=== PATIENT | male | born 1945 | race Caucasian/White ===

== ENCOUNTER 2018-02-15 14:31 | Inpatient (IN) ==
[2018-02-15] MEDS ORDERED: IPRATROPIUM/ALBUTEROL 3 ML AMPUL.NEB NEB ONE ×2 (14:36→20:44)
[2018-02-15] MEDS ORDERED: methylPREDNISolone SOD SUCC 125 MG/2 ML VIAL IV ONE (14:37)
[2018-02-15] MEDS ORDERED: AZITHROMYCIN 500 MG in DEXTROSE 5% IN WATER 250 ML IV ONE ×2 (14:37→16:58)
[2018-02-15] MEDS ORDERED: 0.9 % SODIUM CHLORIDE 1,000 ML IV ONE (14:55)
--- NOTE | 2018-02-15 15:16 | XRay Report ---
HISTORY: Shortness of breath with cough FINDINGS: There are prominent increased interstitial lung markings throughout both lungs with the greatest opacification located medially in the right lung base. There is no lobar consolidation, mass or pleural effusion. The heart size is normal. The luis a and mediastinum appear normal. There are clips at the left apex. Comparison with the prior exam from 05/31/17 shows interstitial lung disease is much more apparent today. IMPRESSION: Widespread interstitial lung disease which could be due to infection or noninfectious inflammatory process. If this does not respond to conservative therapy, high resolution chest CT would be recommended for further workup. Interpreted and Authenticated by: Jose M Carreno 02/15/18
[2018-02-15 15:32] LABS: Mean Cell Volume 89.7 fL (80.0-100.0); Mean Corpuscular HGB Conc 33.3 g/dL (31.0-36.0); Mean Corpuscular Hemoglobin 29.9 pg (26.0-34.0); Platelet Count 332 K/mcL (140-440); RBC 5.09 M/mcL (4.50-5.90); Red Cell Distribution Width 12.4 % (11.5-14.5)
[2018-02-15 15:48] LABS: ALT/SGPT 38 U/l (0-40); Albumin 3.7 gm/dL (3.2-5.2); Albumin/Globulin Ratio 0.9 (1.0-2.3); Alkaline Phosphatase 93 U/L (39-117); Blood Urea Nitrogen 12 mg/dl (8-23)
--- NOTE | 2018-02-15 16:18 | Emergency Department Note ---
SOB HPI - General Chief Complaint: Shortness of Breath/Dyspnea Stated Complaint: short of breath, cough Time Seen by Provider: 02/15/18 14:34 Source: patient, family Mode of arrival: wheelchair Limitations: no limitations - History of Present Illness 72-year-old male presents with shortness of breath, onset about 3 weeks ago but progressively gotten worse of the last couple of weeks and especially the last few days. Has known COPD. Uses inhalers at home. Is not getting any relief. Does have chest tightness. Shortness of breath is exacerbated by exertion. Significant other is with him. She states he has had a cough that is productive for the last couple of weeks. Started out with greenish sputum and is now whitish kaur. States he is getting worse, not better. Intermittent fever and chills the last week. No nausea, vomiting, or diarrhea. No ear pain or sore throat. Patient is normally on 1 L nasal cannula at home of oxygen. When he arrives today his sats are in the 70s on room air in triage. Associated symptoms: Reports: chest pain, pain with inspiration, fever, cough, wheezing, sputum production, orthopnea. Denies: lower extremity pain, nausea/ vomiting, syncope, abdominal pain, rash Treatment prior to arrival: oxygen (Patient on 1 L of oxygen nasal cannula at home normally), bronchodilator - Related Data Home Medications Medication Instructions Recorded Confirmed HYDROcodone/APAP 5/325MG [[place] 1 - 2 tab PO Q4HP PRN 11/14/15 02/15/18 5-325Mg] Roflumilast [Daliresp] 500 mcg PO DAILY 11/14/15 02/15/18 Sertraline HCl [Zoloft] 100 mg PO DAILY 11/14/15 02/15/18 formoterol fumarate 20 mcg/2 mL 2 ml INHALATION BID ml 08/05/16 02/15/18 solution for nebulization tiotropium bromide 18 mcg capsule 1 cap INHALATION QDAY 08/05/16 11/25/17 with inhalation device budesonide 0.5 mg/2 mL suspension 0.5 mg INHALATION BID ml 08/13/16 02/15/18 for nebulization Allergies Allergy/AdvReac Type Severity Reaction Status Date / Time Penicillins [PENICILLINS] AdvReac Severe CRAZY Verified 02/15/18 14:35 Review of Systems All systems ED: reviewed and negative except as stated. Past Medical History - Past Medical History [facility] Narrative: Medical History (Last Reviewed 11/25/17 @ 13:45 by Trevor Akins MD) PVD (peripheral vascular disease) (Chronic) Squamous cell carcinoma (Chronic) RLS (restless legs syndrome) (Chronic) Eczema (Chronic) Erectile dysfunction (Chronic) Depression (Chronic) Anxiety (Chronic) Carpal tunnel syndrome (Chronic) COPD (chronic obstructive pulmonary disease) (Chronic) Community acquired pneumonia (Chronic) Acute exacerbation of chronic obstructive airways disease (Chronic) Past Surgical History (Last Reviewed 11/25/17 @ 13:45 by Trevor Akins MD) History of neck surgery (Chronic) History of shoulder surgery (Chronic) Status post wrist surgery (Chronic) Medical history: Reports: arthritis, COPD, glaucoma Surgical history ED: Reports: cataract, orthopedic, other (Rib resection, 3 times cervical spine fusion) - Social History smoking status: Former smoker Alcohol use: Reports: None Drug use: Reports: none Physical Exam Limitations: no limitations General appearance: alert, other (sob, speaking 1-2 words at a time with labored breathing, moderate distress on arrival) Head: atraumatic, normocephalic, normal inspection Eye: Present: normal appearance. Absent: conjunctival injection ENT: normal exam, normal oropharynx, mucous membranes moist, TM's normal bilaterally, normal external ear exam Neck: Present: normal inspection, trachea midline. Absent: tenderness, lymphadenopathy Chest: Present: normal inspection, symmetric chest wall rise Respiratory: Present: respiratory distress (moderate on arrival), rales/ crackles (t/o), wheezes (t/o), accessory muscle use Cardiovascular: Present: regular rate, normal heart sounds Extremities: Present: normal inspection, normal capillary refill. Absent: pedal edema Neurological: Present: alert, oriented X3 Psychiatric: Present: normal affect, normal mood Skin: Present: warm, dry, intact, normal color Course Course Narrative: @ [address] did speak with Dr[address] Caicedo, hospitalist who agrees to accept the patient. He would like us to start pt on Zosyn and Levaquin. Vital Signs Temperature 99.4 F H 02/15/18 14:32 Pulse Rate 104 H 02/15/18 14:32 Respiratory Rate 30 H 02/15/18 14:32 Pulse Oximetry (%) 96 02/15/18 14:32 Temperature 99.4 F H 02/15/18 14:32 Pulse Rate 89 02/15/18 17:32 Respiratory Rate 22 02/15/18 17:32 Blood Pressure 131/64 02/15/18 17:32 Pulse Oximetry (%) 95 02/15/18 17:32 Shortness of Breath/Dyspnea - Lab Data Lab results reviewed: Yes I reviewed the patient's lab results. Result diagrams: 02/15/18 14:36 02/15/18 14:36 Lab Results 02/15/18 02/15/18 02/15/18 Range/Units 14:35 14:36 14:36 WBC 15.7 H (4.5-11.0) K/mcL RBC 5.09 (4.50-5.90) M/mcL Hgb 15.2 (13.5-16.5) g/dL Hct 45.6 (41.0-55.0) % MCV 89.7 (80.0-100.0) fL MCH 29.9 (26.0-34.0) pg MCHC 33.3 (31.0-36.0) g/dL RDW 12.4 (11.5-14.5) % Plt Count 332 (140-440) K/mcL MPV 7.6 (7.4-10.4) fL Total Counted 100 Seg Neutrophils % 76 (38-78) % Band Neutrophils % 7 (0-10) % Lymphocytes % 8 L (15-49) % Monocytes % (Manual) 9 (1-12) % Platelet Estimate Normal (NORMAL) RBC Morphology Normal (NORMAL) VBG Lactic Acid (0.5-2.0) mmol/L Sodium 141 (133-145) mmol/L Potassium 3.8 (3.3-5.1) mmol/L Chloride 97 (96-108) mmol/L Carbon Dioxide 33 H (22-30) mmol/L Anion Gap 11.0 (8-16) BUN 12 (8-23) mg/dl Creatinine 0.7 (0.7-1.2) mg/dl GFR Calculation 93 Glucose 128 H (70-105) mg/dL Calcium 9.4 (8.6-10.4) mg/dl Total Bilirubin 0.4 (0.0-1.0) mg/dL AST 24 (0-37) U/l ALT 38 (0-40) U/l Alkaline Phosphatase 93 (39-117) U/L Total Protein 7.7 (5.9-8.4) gm/dL Albumin 3.7 (3.2-5.2) gm/dL Globulin 4.0 H (2.2-3.7) gm/dL Albumin/Globulin Ratio 0.9 L (1.0-2.3) Procalcitonin < 0.10 (<0.10) ng/mL 02/15/18 Range/Units 14:36 WBC (4.5-11.0) K/mcL RBC (4.50-5.90) M/mcL Hgb (13.5-16.5) g/dL Hct (41.0-55.0) % MCV (80.0-100.0) fL MCH (26.0-34.0) pg MCHC (31.0-36.0) g/dL RDW (11.5-14.5) % Plt Count (140-440) K/mcL MPV (7.4-10.4) fL Total Counted Seg Neutrophils % (38-78) % Band Neutrophils % (0-10) % Lymphocytes % (15-49) % Monocytes % (Manual) (1-12) % Platelet Estimate (NORMAL) RBC Morphology (NORMAL) VBG Lactic Acid 1.0 (0.5-2.0) mmol/L Sodium (133-145) mmol/L Potassium (3.3-5.1) mmol/L Chloride (96-108) mmol/L Carbon Dioxide (22-30) mmol/L Anion Gap (8-16) BUN (8-23) mg/dl Creatinine (0.7-1.2) mg/dl GFR Calculation Glucose (70-105) mg/dL Calcium (8.6-10.4) mg/dl Total Bilirubin (0.0-1.0) mg/dL AST (0-37) U/l ALT (0-40) U/l Alkaline Phosphatase (39-117) U/L Total Protein (5.9-8.4) gm/dL Albumin (3.2-5.2) gm/dL Globulin (2.2-3.7) gm/dL Albumin/Globulin Ratio (1.0-2.3) Procalcitonin (<0.10) ng/mL - Radiology Data Radiology results reviewed: Yes I reviewed the patient's radiology results. Disposition Pt seen by DEB[employer] SUPERVISOR/PA only: No Clinical Impression: Pneumonia, Hypoxia Disposition: Xfer As Inpt ([facility]) Condition: Fair Referrals: Jade Lema MD [Primary Care Provider] - Time of Disposition: 17:00
[2018-02-15 16:32] LABS: Band Neutrophils % 7 % (0-10); Lymphocytes % 8 % (15-49); Monocytes % (Manual) 9 % (1-12); Platelet Estimate NORMAL (NORMAL); RBC Morphology NORMAL (NORMAL); Segmented Neutrophils % 76 % (38-78)
--- NOTE | 2018-02-15 16:55 | Cat Scan Report ---
CLINICAL INFORMATION: Cough and diffuse interstitial lung disease COMPARISON: Chest x-ray done earlier the same date TECHNIQUE: 2.5 mm axial slices were obtained from the lung apices through the bases without intravenous contrast. Sagittal, coronal and axial reformatted images were processed and reviewed at bone, lung and soft tissue windows. 7 mm axial MIP images were also reconstructed. The radiation exposure was limited using dose reduction technology. FINDINGS: There is moderate centrilobular emphysema throughout both lungs with the greatest involvement in the upper lobes. Superimposed upon this there are patchy areas of consolidated lung parenchyma with the greatest involvement in the basilar segments of both lower lobes. There is no lobar consolidation. A well-circumscribed subpleural 5 mm nodule is present laterally in the superior segment of lingula. This has benign features. No pleural effusion is present. There are a few reactive lymph nodes in the mediastinum. The heart is normal in size and contour. There are several calcified plaques in the coronary arteries and the aorta. Incidentally noted is a 4 mm gallstone in the body of the gallbladder. IMPRESSION: Moderate emphysema with superimposed pneumonia in both lower lobes and with milder pneumonia in the lingula and right upper lobe Interpreted and Authenticated by: Jose M Carreno 02/15/18
[2018-02-15] MEDS ORDERED: LEVOFLOXACIN 500 MG/100 ML BAG IV ONE (17:44)
[2018-02-15] MEDS ORDERED: PIPERACILLIN SODIUM/TAZOBACTAM 3.375 GM in DEXTROSE 5% IN WATER 50 ML IV ONE (17:44)
--- NOTE | 2018-02-15 18:07 | Emergency Department Note ---
ED Note Addendum Note Addendum: Agree with the need for admission for pneumonia per Dr. Black
--- NOTE | 2018-02-15 18:26 | Internal Med History&Physical ---
Medical - H&P: [facility] Patient information: Note initiated : 02/15/18 at 6:22 pm Service Date, if different from initiated Date: [] Patient: Barry Light a 72 y/o M admitted on for short of breath, cough. Chief Complaint: [] Chief complaint: Shortness of breath History of present illness: Mr. 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 Barry has noted worsening shortness of breath along with increasing sputum production that has limited his functionality over the last 5 days. He tried to work with the symptoms however he failed to notice any improvement with bronchodilators. He has become increasingly labored even at rest. He also noted associated intermittent chills along with low-grade fever without sweats. He denied being exposed to sick contact. He subsequently presents to the ER initial workup was significant for profound hypoxia at 70% sats. Chest x-ray reveals multifocal pneumonia. He was started on antibiotic coverage after blood cultures were drawn. Hospitalist service was subsequently consulted for admission At the time of evaluation patient is very distressed trying to catch of breath and labored. Unable to talk in full sentences. No family present. He was able to provide answer to most of the questions in yes and no. He appears very anxious. He however feels slightly better with initial treatment in the ER. He denies diarrhea, chest pain, headache photophobia or myalgias. He denies bloody sputum. Review of systems A 10 point review of system was performed and is negative except for one discussed above Medical - H&P: PM Medical history: PVD (peripheral vascular disease) (Chronic) Squamous cell carcinoma (Chronic) RLS (restless legs syndrome) (Chronic) Eczema (Chronic) Erectile dysfunction (Chronic) Depression (Chronic) Anxiety (Chronic) Carpal tunnel syndrome (Chronic) COPD (chronic obstructive pulmonary disease) (Chronic) Community acquired pneumonia (Chronic) Acute exacerbation of chronic obstructive airways disease (Chronic) 05/31/17, visit to the emergency room Surgical history: History of neck surgery (Chronic) X3 History of shoulder surgery (Chronic) left Status post wrist surgery (Chronic) Pertinent family history: Father , accidental Accidental Mother Asthma Diabetes Brother Seizure disorder Sister , blood clot Metastatic cancer Social history: marital status: to Jo. He denies history of alcoholism. He quit after an [id number] history of smoking. He sees primary care physician, Dr. Jade Lema, and follows up with pulmonology Dr. Akins smoking status: Former smoker quit date: 04/15/15 Drug use: none Alcohol use: none Medical - H&P: Meds Home Medications Medication Instructions Recorded Confirmed Type HYDROcodone/APAP 5/325MG [[place] 1 - 2 tab PO Q4HP PRN 11/14/15 02/15/18 History 5-325Mg] Roflumilast [Daliresp] 500 mcg PO DAILY 11/14/15 02/15/18 History Sertraline HCl [Zoloft] 100 mg PO DAILY 11/14/15 02/15/18 History formoterol fumarate 20 mcg/2 mL 2 ml INHALATION BID ml 08/05/16 02/15/18 History solution for nebulization tiotropium bromide 18 mcg capsule 1 cap INHALATION QDAY 08/05/16 02/15/18 History with inhalation device budesonide 0.5 mg/2 mL suspension 0.5 mg INHALATION BID ml 08/13/16 02/15/18 History for nebulization Albuterol Sulfate [Ventolin] 2 puff INH Q4H PRN 02/15/18 02/15/18 History Allergies Allergy/AdvReac Type Severity Reaction Status Date / Time Penicillins [PENICILLINS] AdvReac Mild CRAZY Verified 02/15/18 20:29 Medical - H&P: Exam - Constitutional Vitals: Temp Pulse Resp BP Pulse Ox 99.4 F H 86 18 116/63 96 02/15/18 14:32 02/15/18 18:08 02/15/18 18:08 02/15/18 18:02 02/15/18 18:08 Medical - H&P: Reslt - Labs CBC & Chem 7: 02/16/18 03:46 02/16/18 03:46 Labs: Short CBC 02/15/18 Range/Units 14:36 WBC 15.7 H (4.5-11.0) K/mcL Hgb 15.2 (13.5-16.5) g/dL Hct 45.6 (41.0-55.0) % Plt Count 332 (140-440) K/mcL BMP 02/15/18 14:36 Sodium 141 Potassium 3.8 Chloride 97 Carbon Dioxide 33 H BUN 12 Creatinine 0.7 Glucose 128 H Calcium 9.4 Liver Function 02/15/18 Range/Units 14:36 Total Bilirubin 0.4 (0.0-1.0) mg/dL AST 24 (0-37) U/l ALT 38 (0-40) U/l Alkaline Phosphatase 93 (39-117) U/L Albumin 3.7 (3.2-5.2) gm/dL Medical - H&P: A/P (1) Sepsis associated with vascular access catheter Current visit: Yes Status: Acute * Sepsis secondary to multifocal pneumonia-continue management per protocol. Broad antibiotic coverage. Cultures awaited. * Multifocal pneumonia likely aspiration-empiric coverage for gram-negative/ anaerobes. Aspiration precautions. Speech therapy eval. * Acute hypoxic respiratory failure secondary to underlying end-stage COPD/ multifocal pneumonia-noninvasive ventilation as indicated. * End-stage COPD on nocturnal trilogy ventilator dependent. Continue noninvasive ventilation. Patient remains high risk mortality. For acute exacerbation continue steroids/bronchodilators * Anxiety/depression continue SSRI * DJD continue as needed opioids * Prophylaxis heparin Plan * Inpatient ICU admit in light of multifocal pneumonia and sepsis requiring minimum 2 midnight hospitalization * Noninvasive ventilation and intubate if indicated * Periodic ABG/CXR * Pancultures/broad antibiotics * Pre-existing medical condition management as above * Very high risk mortality in light of end-stage COPD- TRIBAL II score over 17 Total time spent on history and physical in excess of 65 minutes. An additional 25 minutes critical care time spent on reviewing ABGs, noninvasive ventilation management, treatment planning for hypoxic respiratory failure and severe sepsis.
[2018-02-15] MEDS ORDERED: guaiFENesin/CODEINE 10 ML UDC PO PRN (20:27)
[2018-02-15] MEDS ORDERED: ACETAMINOPHEN 1,000 MG/100 ML BOTTLE IV PRN (20:27)
[2018-02-15] MEDS ORDERED: ACETAMINOPHEN 325 MG TABLET PO PRN (20:27)
[2018-02-15] MEDS ORDERED: ONDANSETRON 4 MG/2 ML VIAL IV PRN (20:27)
[2018-02-15] MEDS ORDERED: HYDROcodone/APAP 5/325MG TABLET PO PRN (20:27)
[2018-02-15] MEDS ORDERED: POTASSIUM CHLORIDE 20 MEQ PACKET PO PRN (20:27)
[2018-02-15] MEDS ORDERED: MAGNESIUM SULFATE 2 GM/50 ML BAG IV PRN (20:27)
[2018-02-15] MEDS: BUDESONIDE 0.5 MG/2 ML AMPUL.NEB NEB SCH (20:37)
[2018-02-15] MEDS: IPRATROPIUM/ALBUTEROL 3 ML AMPUL.NEB NEB SCH ×2 (20:37→22:51)
[2018-02-15] MEDS ORDERED: SENNOSIDES/DOCUSATE SODIUM 1 TAB TABLET PO SCH (21:00)
[2018-02-15] MEDS: DOCUSATE SODIUM 100 MG CAPSULE PO SCH (23:06)
[2018-02-15] MEDS: HEPARIN 5,000 UNIT/ML VIAL SQ SCH (23:07)
[2018-02-15] MEDS: 0.9 % SODIUM CHLORIDE 1,000 ML IV SCH (23:08)
[2018-02-15] MEDS: 0.9 % SODIUM CHLORIDE 10 ML SYRINGE IV SCH (23:14)
[2018-02-16] MEDS: methylPREDNISolone SOD SUCC 125 MG/2 ML VIAL IV SCH ×4 (00:27→17:09)
[2018-02-16] MEDS: PIPERACILLIN SODIUM/TAZOBACTAM 3.375 GM in DEXTROSE 5% IN WATER 50 ML IV SCH ×5 (00:27→23:36)
[2018-02-16] MEDS: IPRATROPIUM/ALBUTEROL 3 ML AMPUL.NEB NEB SCH ×6 (03:14→22:31)
[2018-02-16 05:45] LABS: Mean Cell Volume 89.7 fL (80.0-100.0); Mean Corpuscular HGB Conc 33.4 g/dL (31.0-36.0); Mean Corpuscular Hemoglobin 29.9 pg (26.0-34.0); Platelet Count 254 K/mcL (140-440); RBC 4.23 M/mcL (4.50-5.90); Red Cell Distribution Width 12.8 % (11.5-14.5)
[2018-02-16] MEDS: 0.9 % SODIUM CHLORIDE 10 ML SYRINGE IV SCH ×4 (06:00→21:36)
[2018-02-16 06:11] LABS: ALT/SGPT 29 U/l (0-40); Albumin 2.8 gm/dL (3.2-5.2); Albumin/Globulin Ratio 0.8 (1.0-2.3); Alkaline Phosphatase 73 U/L (39-117); Bilirubin,Direct < 0.2 mg/dL (0.0-0.3); Blood Urea Nitrogen 17 mg/dl (8-23); Gamma Glutamyl Transpeptidase 16 U/L (8-61); Uric Acid 2.2 mg/dL (2.5-8.0)
[2018-02-16 06:37] LABS: Lymphocytes % 7 % (15-49); Monocytes % (Manual) 1 % (1-12); Platelet Estimate NORMAL (NORMAL); RBC Morphology NORMAL (NORMAL); Segmented Neutrophils % 92 % (38-78)
[2018-02-16] MEDS: BUDESONIDE 0.5 MG/2 ML AMPUL.NEB NEB SCH ×2 (07:01→19:03)
[2018-02-16] MEDS: DOCUSATE SODIUM 100 MG CAPSULE PO SCH ×3 (08:38→21:33)
[2018-02-16] MEDS: HEPARIN 5,000 UNIT/ML VIAL SQ SCH ×2 (08:38→21:34)
[2018-02-16] MEDS ORDERED: NEUTRA PHOS 1 PACKET PO SCH (09:00)
[2018-02-16] MEDS ORDERED: LEVOFLOXACIN 750 MG/150 ML BAG IV SCH (09:00)
[2018-02-16] MEDS ORDERED: MULTIVIT,THER IRON,CA,FA & MIN 1 TABLET PO SCH (09:00)
[2018-02-16] MEDS ORDERED: SERTRALINE 50 MG TABLET PO SCH (09:00)
--- NOTE | 2018-02-16 11:14 | Internal Med Progress Note ---
Medical - PN: Subj Patient information: Note initiated : 02/16/18 at 11:12 am Service Date, if different from initiated Date: [] Patient: Barry Light a 72 y/o M admitted on 02/15/18 for short of breath, cough. Chief Complaint: [] Interval history: Mr. 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 Barry has noted worsening shortness of breath along with increasing sputum production that has limited his functionality over the last 5 days. He tried to work with the symptoms however he failed to notice any improvement with bronchodilators. He has become increasingly labored even at rest. He also noted associated intermittent chills along with low-grade fever without sweats. He denied being exposed to sick contact. He subsequently presents to the ER initial workup was significant for profound hypoxia at 70% sats. Chest x-ray reveals multifocal pneumonia. He was started on antibiotic coverage after blood cultures were drawn. Hospitalist service was subsequently consulted for admission At the time of evaluation patient is very distressed trying to catch of breath and labored. Unable to talk in full sentences. No family present. He was able to provide answer to most of the questions in yes and no. He appears very anxious. He however feels slightly better with initial treatment in the ER. 02/16-patient status quo however was managed on BiPAP overnight, currently on trial of BiPAP. Persistent labored breathing. On broad antibiotic coverage. On dysphagic diet/ST eval. On IV steroids. White count improved from 15.7- 9.5. Strep pneumo/mycoplasma serologies negative. Improved tachycardia and tachypnea. ABG 7.4/50 7/50 compensated on BiPAP. - Constitutional Vitals: Vital Signs Temp Pulse Resp BP Pulse Ox 98.6 F 100 H 22 149/79 92 02/16/18 08:01 02/16/18 10:13 02/16/18 10:13 02/16/18 10:01 02/16/18 10:01 Period Temp Pulse Resp BP Sys/Haas Pulse Ox Last 24 Hr 98.2 F-99.4 F 65-107 17-30 98-149/52-107 77-100 Intake and Output 12/06/3002/16/18 02/16/18 21:59 05:59 13:59 Intake Total 1400 / 1400 330 / 330 Output Total 250 / 250 50 / 50 200 / 200 Balance 1150 / 1150 280 / 280 -200 / -200 Weight 138 lb 14.4 oz Intake & Output: Intake & Output 02/15/18 02/16/18 02/16/18 21:59 05:59 13:59 Intake Total 1400 / 1400 330 / 330 Output Total 250 / 250 50 / 50 200 / 200 Balance 1150 / 1150 280 / 280 -200 / -200 Weight 138 lb 14.4 oz Intake: IV 1400 / 1400 50 / 50 Sodium Chloride 0.9% 1,000 ml @ 1000 / 1000 Wide Open IV BOLUS ONE Rx#: [id number] Zithromax 500 mg In Dextrose 5% 250 / 250 in Water 250 ml @ 250 mls/hr IV ONCE ONE Rx#:[id number] Zosyn 3.375 gm In Dextrose 5% 50 / 50 50 / 50 in Water 50 ml @ 100 mls/hr IV Q6H [facility] Rx#:[id number] Oral 280 / 280 Output: Void Amount 250 / 250 50 / 50 200 / 200 Other: Meal snack Percent of Meal Consumed 100% Urine Appearance Clear Clear Clear Urine Color Bright Yellow Straw Straw General appearance: moderate distress Exam: S OB and labored minimal anxiety No lymphedema Alert oriented Medical - PN: Obj Da - Labs CBC & Chem 7: 02/16/18 03:46 02/16/18 03:46 Labs: Abnormal Lab Results 02/16/18 02/16/18 02/15/18 03:46 03:46 14:36 WBC RBC 4.23 L Hgb 12.6 L Hct 37.9 L Seg Neutrophils % 92 H Lymphocytes % 7 L Carbon Dioxide 33 H Glucose 291 H 128 H Uric Acid 2.2 L Calcium 8.5 L Phosphorus 2.1 L Albumin 2.8 L Globulin 4.0 H Albumin/Globulin Ratio 0.8 L 0.9 L 02/15/18 14:36 WBC 15.7 H RBC Hgb Hct Seg Neutrophils % Lymphocytes % 8 L Carbon Dioxide Glucose Uric Acid Calcium Phosphorus Albumin Globulin Albumin/Globulin Ratio Meds: Medications Acetaminophen (Tylenol) 650 mg PO Q4-6HP PRN PRN Reason: PAIN/FEVER > 101 Hydrocodone Bitart/Acetaminophen ([place] 5/325mg) 1 - 2 tab PO Q4HP PRN PRN Reason: Pain Albuterol/Ipratropium (Duoneb) 3 ml NEB Q4HRT [facility] Last Admin: 02/16/18 10:12 Dose: 3 ml Budesonide (Pulmicort) 0.5 mg NEB Q12 [facility] Last Admin: 02/16/18 07:01 Dose: 0.5 mg Diagnostic Test (Pha) (Accu-Chek) 1 each FS [facility] Docusate Sodium (Colace) 100 mg PO BID [facility] Last Admin: 02/16/18 08:44 Dose: Not Given Guaifenesin/Codeine Phosphate (Robitussin Ac) 10 ml PO Q4HP PRN PRN Reason: Cough Heparin Sodium (Porcine) (Heparin) 5,000 unit SQ Q12 [facility] Last Admin: 02/16/18 08:38 Dose: 5,000 unit Levofloxacin (Levaquin) 750 mg in 150 mls @ 100 mls/hr IV Q24H [facility] Last Admin: 02/16/18 08:37 Dose: 100 mls/hr Magnesium Sulfate (Magnesium Sulfate) 2 gm in 50 mls @ 50 mls/hr IV UD PRN PRN Reason: MG = or < 1.7 Sodium Chloride (Sodium Chloride 0.9%) 1,000 mls @ 50 mls/hr IV .Q20H [facility] Stop: 02/18/18 08:26 Last Admin: 02/15/18 23:08 Dose: 50 mls/hr Acetaminophen (Ofirmev) 1,000 mg in 100 mls @ 200 mls/hr IV Q6HP PRN PRN Reason: PAIN/FEVER > 101 Piperacillin Sod/Tazobactam (Sod 3.375 gm/ Dextrose) 50 mls @ 100 mls/hr IV Q6H [facility] Last Admin: 02/16/18 06:01 Dose: 100 mls/hr Insulin Human Lispro (Humalog) 0 unit SQ [facility]; Protocol Iron Carb/Multivit/Wire Inspector/Folic Acid (Multivitamin W/Minerals) 1 tab PO DAILY [facility] Last Admin: 02/16/18 08:38 Dose: 1 tab Methylprednisolone Sodium Succinate (Solu-Medrol) 60 mg IV Q6 [facility] Last Admin: 02/16/18 06:00 Dose: 60 mg Ondansetron HCl (Zofran) 4 mg IV Q4-6HP PRN PRN Reason: Nausea And Vomiting Potassium Chloride (Klor-Con) 40 meq PO DAILYP PRN PRN Reason: K+ < 3.5 Potassium/Phosphorus/Sodium (Neutra Phos) 2 packet PO BID [facility] Stop: 02/17/18 21:01 Last Admin: 02/16/18 09:55 Dose: 2 packet Senna/Docusate Sodium (Senna Plus Tablet) 1 tab PO HS [facility] Last Admin: 02/15/18 23:06 Dose: Not Given Sertraline HCl (Zoloft) 100 mg PO DAILY [facility] Last Admin: 02/16/18 08:38 Dose: 100 mg Sodium Chloride (Saline Flush) 10 ml IV Q8 [facility] Last Admin: 02/16/18 06:00 Dose: 10 ml Medical - PN: A/P - Time Spent With Patient Total time spent is greater than 50% in coordination of care (as documented) at patient's floor/unit and/or counseling patient: 25 - 35 minutes (Critical care time) (1) Sepsis associated with vascular access catheter Status: Acute Assessment and plan: * Acute hypoxic respiratory failure secondary to underlying end-stage COPD/ multifocal pneumonia-clinically improved on noninvasive ventilation. Check interval ABG/chest imaging * Multifocal pneumonia likely aspiration-clinically improving on empiric coverage for gram-negative/anaerobes. Continue aspiration precautions. Speech therapy eval for dietary recommendation. * Sepsis secondary to multifocal pneumonia-clinically improving. Downtrending white count. Continue antibiotic coverage. Await swenson cultures. Strep pneumo/ mycoplasma/MRSA negative. Continue management per protocol. Br * End-stage oxygen COPD / nocturnal trilogy ventilator dependent. Continue noninvasive ventilation, steroids/bronchodilators * Anxiety/depression continue SSRI * DJD continue as needed opioids * Prophylaxis heparin Plan * ICU care * Continue noninvasive ventilation * Interval ABG/CXR * broad antibiotics to continue Current Visit: Yes Medical - PN: Qual - VTE Deep Vein Thrombosis/Pulmonary Embolism Present on Admission: No
[2018-02-16] MEDS: INSULIN LISPRO 1 UNIT/0.01 ML UNIT SQ SCH ×3 (11:17→21:34)
[2018-02-16] MEDS ORDERED: VANCOMYCIN PER PHARMACY IV SCH ×2 (11:55→18:42)
[2018-02-16] MEDS ORDERED: VANCOMYCIN 1,000 MG in 0.9 % SODIUM CHLORIDE 250 ML IV SCH (12:00)
[2018-02-16] MEDS: 0.9 % SODIUM CHLORIDE 1,000 ML IV SCH (16:44)
[2018-02-16] MEDS ORDERED: ACETAMINOPHEN 1,000 MG/100 ML BOTTLE IV PRN (18:42)
[2018-02-16] MEDS ORDERED: ONDANSETRON 4 MG/2 ML VIAL IV PRN (18:42)
[2018-02-16] MEDS ORDERED: guaiFENesin/CODEINE 10 ML UDC PO PRN (18:42)
[2018-02-16] MEDS ORDERED: MAGNESIUM SULFATE 2 GM/50 ML BAG IV PRN (18:42)
[2018-02-16] MEDS ORDERED: ACETAMINOPHEN 325 MG TABLET PO PRN (18:42)
[2018-02-16] MEDS ORDERED: POTASSIUM CHLORIDE 20 MEQ PACKET PO PRN (18:42)
[2018-02-16] MEDS ORDERED: HYDROcodone/APAP 5/325MG TABLET PO PRN (18:42)
[2018-02-16] MEDS: SENNOSIDES/DOCUSATE SODIUM 1 TAB TABLET PO SCH (21:35)
[2018-02-16] MEDS: NEUTRA PHOS 1 PACKET PO SCH (21:35)
[2018-02-17] MEDS: 0.9 % SODIUM CHLORIDE 1,000 ML IV SCH ×2 (00:22→18:10)
[2018-02-17] MEDS: VANCOMYCIN 1,000 MG in 0.9 % SODIUM CHLORIDE 250 ML IV SCH ×2 (00:22→12:40)
[2018-02-17] MEDS: methylPREDNISolone SOD SUCC 125 MG/2 ML VIAL IV SCH ×3 (00:22→21:01)
[2018-02-17] MEDS: IPRATROPIUM/ALBUTEROL 3 ML AMPUL.NEB NEB SCH ×6 (04:23→23:09)
[2018-02-17] MEDS: 0.9 % SODIUM CHLORIDE 10 ML SYRINGE IV SCH ×3 (05:50→21:02)
[2018-02-17] MEDS: PIPERACILLIN SODIUM/TAZOBACTAM 3.375 GM in DEXTROSE 5% IN WATER 50 ML IV SCH ×4 (05:51→23:20)
[2018-02-17 06:12] LABS: Mean Cell Volume 89.7 fL (80.0-100.0); Mean Corpuscular HGB Conc 33.8 g/dL (31.0-36.0); Mean Corpuscular Hemoglobin 30.3 pg (26.0-34.0); Platelet Count 253 K/mcL (140-440); RBC 3.99 M/mcL (4.50-5.90); Red Cell Distribution Width 12.5 % (11.5-14.5)
[2018-02-17 06:30] LABS: ALT/SGPT 29 U/l (0-40); Albumin 2.9 gm/dL (3.2-5.2); Albumin/Globulin Ratio 0.9 (1.0-2.3); Alkaline Phosphatase 68 U/L (39-117); Bilirubin,Direct < 0.2 mg/dL (0.0-0.3); Blood Urea Nitrogen 18 mg/dl (8-23); Gamma Glutamyl Transpeptidase 16 U/L (8-61); Uric Acid 1.7 mg/dL (2.5-8.0)
[2018-02-17 06:40] LABS: Band Neutrophils % 1 % (0-10); Lymphocytes % 6 % (15-49); Monocytes % (Manual) 3 % (1-12); Platelet Estimate NORMAL (NORMAL); RBC Morphology NORMAL (NORMAL); Segmented Neutrophils % 90 % (38-78)
[2018-02-17] MEDS: BUDESONIDE 0.5 MG/2 ML AMPUL.NEB NEB SCH ×2 (07:00→19:23)
[2018-02-17] MEDS: DOCUSATE SODIUM 100 MG CAPSULE PO SCH ×2 (07:39→20:06)
--- NOTE | 2018-02-17 08:20 | XRay Report ---
HISTORY: Shortness of breath, cough, COPD and multifocal pneumonia FINDINGS: Lungs remain hyperinflated due to COPD and pulmonary fibrosis. Superimposed upon the COPD there are ill-defined streaky infiltrates in both lungs. The greatest involvement is located inferiorly and medially in the right lower lobe. There has been mild improvement since the prior chest x-ray done on 02/15/18. No mass is identified. There is no pleural effusion. The heart size is normal. IMPRESSION: Improving interstitial pneumonia superimposed upon underlying COPD and pulmonary fibrosis Interpreted and Authenticated by: Jose M Carreno 02/17/18
[2018-02-17] MEDS: INSULIN LISPRO 1 UNIT/0.01 ML UNIT SQ SCH ×4 (08:32→20:53)
[2018-02-17] MEDS: MULTIVIT,THER IRON,CA,FA & MIN 1 TABLET PO SCH (08:36)
[2018-02-17] MEDS: HEPARIN 5,000 UNIT/ML VIAL SQ SCH ×2 (08:36→21:01)
[2018-02-17] MEDS: NEUTRA PHOS 1 PACKET PO SCH ×2 (08:37→21:01)
[2018-02-17] MEDS: SERTRALINE 50 MG TABLET PO SCH (08:37)
[2018-02-17] MEDS ORDERED: LEVOFLOXACIN 750 MG/150 ML BAG IV SCH (09:00)
--- NOTE | 2018-02-17 12:37 | Internal Med Progress Note ---
Medical - PN: Subj Patient information: Note initiated : 02/17/18 at 12:34 pm Service Date, if different from initiated Date: [] Patient: Barry Light a 72 y/o M admitted on 02/15/18 for short of breath, cough. Chief Complaint: [] Interval history: Mr. 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 Barry has noted worsening shortness of breath along with increasing sputum production that has limited his functionality over the last 5 days. He tried to work with the symptoms however he failed to notice any improvement with bronchodilators. He has become increasingly labored even at rest. He also noted associated intermittent chills along with low-grade fever without sweats. He denied being exposed to sick contact. He subsequently presents to the ER initial workup was significant for profound hypoxia at 70% sats. Chest x-ray reveals multifocal pneumonia. He was started on antibiotic coverage after blood cultures were drawn. Hospitalist service was subsequently consulted for admission At the time of evaluation patient is very distressed trying to catch of breath and labored. Unable to talk in full sentences. No family present. He was able to provide answer to most of the questions in yes and no. He appears very anxious. He however feels slightly better with initial treatment in the ER. 02/16-patient status quo however was managed on BiPAP overnight, currently on trial of BiPAP. Persistent labored breathing. On broad antibiotic coverage. On dysphagic diet/ST eval. On IV steroids. White count improved from 15.7- 9.5. Strep pneumo/mycoplasma serologies negative. Improved tachycardia and tachypnea. ABG 7.4/50 7/50 compensated on BiPAP. -02/17-patient clinically improved since previous day however persistent shortness of breath. Was on trilogy ventilator at night. On antibiotic coverage. White count 15.1. Still unable to talk in full sentences. Son at bedside. Continue telemonitoring. Improved tachycardia. No overnight fever chills or major concerns per nursing staff. On antibiotic coverage. - Constitutional Vitals: Vital Signs Temp Pulse Resp BP Pulse Ox 98.2 F 104 H 18 130/60 95 02/17/18 08:07 02/17/18 11:35 02/17/18 11:35 02/17/18 08:07 02/17/18 08:07 Period Temp Pulse Resp BP Sys/Haas Pulse Ox Last 24 Hr 98.2 F-99.7 F 78-106 10-36 128-177/60-118 90-100 Intake and Output 02/16/18 02/17/18 02/17/18 21:59 05:59 13:59 Intake Total 1000 / 1000 1300 / 1300 200 / 200 Output Total 775 / 775 500 / 500 Balance 225 / 225 1300 / 1300 -300 / -300 Weight 143 lb 8 oz Intake & Output: Intake & Output 02/16/18 02/17/18 02/17/18 21:59 05:59 13:59 Intake Total 1000 / 1000 1300 / 1300 200 / 200 Output Total 775 / 775 500 / 500 Balance 225 / 225 1300 / 1300 -300 / -300 Weight 143 lb 8 oz Intake: IV 350 / 350 1300 / 1300 200 / 200 Zosyn 3.375 gm In Dextrose 5% 100 / 100 50 / 50 50 / 50 in Water 50 ml @ 100 mls/hr IV Q6H [facility] Rx#:[id number] Vancomycin 1,000 mg In Sodium 250 / 250 250 / 250 Chloride 0.9% 250 ml @ 250 mls/ hr IV Q12H [facility] Rx#:[id number] Oral 650 / 650 Output: Urine Catheter Amount 550 / 550 Void Amount 225 / 225 500 / 500 Other: Meal Dinner Percent of Meal Consumed 75% Urine Appearance Clear Clear Urine Color Pale Bright Yellow Bright Yellow Urine Odor Normal Normal Stool Size Moderate Stool Color Brown Stool Consistency Formed # Voids 1 # Bowel Movements 1 General appearance: cooperative, no acute distress Exam: Alert oriented labored and pursed lip breathing Abdomen nontender nondistended Very anxious No lymphedema Medical - PN: Obj Da - Labs CBC & Chem 7: 02/17/18 03:40 02/17/18 03:40 Labs: Abnormal Lab Results 02/17/18 02/17/18 02/16/18 03:40 03:40 03:46 WBC 15.1 H RBC 3.99 L Hgb 12.1 L Hct 35.8 L Seg Neutrophils % 90 H Lymphocytes % 6 L Nucleated RBCs 1 H Carbon Dioxide Creatinine 0.6 L Glucose 192 H 291 H Uric Acid 1.7 L 2.2 L Calcium 8.5 L Phosphorus 2.1 L Albumin 2.9 L 2.8 L Globulin Albumin/Globulin Ratio 0.9 L 0.8 L 02/16/18 02/15/18 02/15/18 03:46 14:36 14:36 WBC 15.7 H RBC 4.23 L Hgb 12.6 L Hct 37.9 L Seg Neutrophils % 92 H Lymphocytes % 7 L 8 L Nucleated RBCs Carbon Dioxide 33 H Creatinine Glucose 128 H Uric Acid Calcium Phosphorus Albumin Globulin 4.0 H Albumin/Globulin Ratio 0.9 L Meds: Medications Acetaminophen (Tylenol) 650 mg PO Q4-6HP PRN PRN Reason: PAIN/FEVER > 101 Hydrocodone Bitart/Acetaminophen ([place] 5/325mg) 1 - 2 tab PO Q4HP PRN PRN Reason: Pain Albuterol/Ipratropium (Duoneb) 3 ml NEB Q4HRT [facility] Last Admin: 02/17/18 11:33 Dose: 3 ml Budesonide (Pulmicort) 0.5 mg NEB Q12 [facility] Last Admin: 02/17/18 07:00 Dose: 0.5 mg Diagnostic Test (Pha) (Accu-Chek) 1 each FS ACHS [facility] Last Admin: 02/17/18 11:51 Dose: 1 each Docusate Sodium (Colace) 100 mg PO BID [facility] Last Admin: 02/17/18 07:39 Dose: Not Given Guaifenesin/Codeine Phosphate (Robitussin Ac) 10 ml PO Q4HP PRN PRN Reason: Cough Heparin Sodium (Porcine) (Heparin) 5,000 unit SQ Q12 [facility] Last Admin: 02/17/18 08:36 Dose: 5,000 unit Levofloxacin (Levaquin) 750 mg in 150 mls @ 100 mls/hr IV Q24H [facility] Last Infusion: 02/17/18 10:06 Dose: Infused Magnesium Sulfate (Magnesium Sulfate) 2 gm in 50 mls @ 50 mls/hr IV UD PRN PRN Reason: MG = or < 1.7 Sodium Chloride (Sodium Chloride 0.9%) 1,000 mls @ 50 mls/hr IV .Q20H [facility] Stop: 02/18/18 08:26 Last Admin: 02/17/18 00:22 Dose: 50 mls/hr Acetaminophen (Ofirmev) 1,000 mg in 100 mls @ 200 mls/hr IV Q6HP PRN PRN Reason: PAIN/FEVER > 101 Piperacillin Sod/Tazobactam (Sod 3.375 gm/ Dextrose) 50 mls @ 100 mls/hr IV Q6H [facility] Last Admin: 02/17/18 12:08 Dose: 100 mls/hr Vancomycin HCl 1,000 mg/ (Sodium Chloride) 250 mls @ 250 mls/hr IV Q12H [facility] Last Infusion: 02/17/18 01:25 Dose: Infused Insulin Human Lispro (Humalog) 0 unit SQ ACHS [facility]; Protocol Last Admin: 02/17/18 11:55 Dose: 3 unit Iron Carb/Multivit/Literberry/Folic Acid (Multivitamin W/Minerals) 1 tab PO DAILY [facility] Last Admin: 02/17/18 08:36 Dose: 1 tab Methylprednisolone Sodium Succinate (Solu-Medrol) 60 mg IV BID [facility] Ondansetron HCl (Zofran) 4 mg IV Q4-6HP PRN PRN Reason: Nausea And Vomiting Potassium Chloride (Klor-Con) 40 meq PO DAILYP PRN PRN Reason: K+ < 3.5 Potassium/Phosphorus/Sodium (Neutra Phos) 2 packet PO BID [facility] Stop: 02/17/18 21:01 Last Admin: 02/17/18 08:37 Dose: 2 packet Senna/Docusate Sodium (Senna Plus Tablet) 1 tab PO HS [facility] Last Admin: 02/16/18 21:35 Dose: Not Given Sertraline HCl (Zoloft) 100 mg PO DAILY [facility] Last Admin: 02/17/18 08:37 Dose: 100 mg Sodium Chloride (Saline Flush) 10 ml IV Q8 [facility] Last Admin: 02/17/18 12:06 Dose: 10 ml Vancomycin HCl (Vancomycin Per Pharmacy) 1 order IV UD [facility] Medical - PN: A/P - Time Spent With Patient Total time spent is greater than 50% in coordination of care (as documented) at patient's floor/unit and/or counseling patient: 25 - 35 minutes (1) Sepsis associated with vascular access catheter Status: Acute Assessment and plan: * Acute hypoxic respiratory failure secondary to underlying end-stage COPD/ multifocal pneumonia-clinically improved on noninvasive ventilation. Improved interval imaging * Multifocal pneumonia likely aspiration-radiological improvement noted. Continue Zosyn for gram-negative/anaerobes/ aspiration precautions. Diet per ST * Sepsis secondary to multifocal pneumonia-leukocytosis at 15. No evidence of endorgan dysfunction * End-stage oxygen COPD /-continue trilogy ventilator/oxygen/steroids/ bronchodilators * Anxiety/depression continue SSRI * DJD continue as needed opioids * Prophylaxis heparin Plan * Transfer to telemetry * Lower Solu-Medrol to twice daily * Continue noninvasive ventilation as indicated * Prior medical condition management as above * Continue antibiotics and de-escalate based on cultures Current Visit: Yes Medical - PN: Qual - VTE Deep Vein Thrombosis/Pulmonary Embolism Present on Admission: No
[2018-02-17] MEDS: SENNOSIDES/DOCUSATE SODIUM 1 TAB TABLET PO SCH (20:06)
[2018-02-18] MEDS: VANCOMYCIN 1,000 MG in 0.9 % SODIUM CHLORIDE 250 ML IV SCH ×2 (00:21→12:47)
[2018-02-18] MEDS: 0.9 % SODIUM CHLORIDE 1,000 ML IV SCH (00:23)
[2018-02-18] MEDS: IPRATROPIUM/ALBUTEROL 3 ML AMPUL.NEB NEB SCH ×6 (02:58→22:36)
[2018-02-18 05:47] LABS: Mean Cell Volume 90.6 fL (80.0-100.0); Mean Corpuscular HGB Conc 33.3 g/dL (31.0-36.0); Mean Corpuscular Hemoglobin 30.2 pg (26.0-34.0); Platelet Count 258 K/mcL (140-440); RBC 4.35 M/mcL (4.50-5.90); Red Cell Distribution Width 12.6 % (11.5-14.5)
[2018-02-18] MEDS: PIPERACILLIN SODIUM/TAZOBACTAM 3.375 GM in DEXTROSE 5% IN WATER 50 ML IV SCH ×3 (05:54→17:08)
[2018-02-18] MEDS: 0.9 % SODIUM CHLORIDE 10 ML SYRINGE IV SCH ×3 (05:55→20:43)
[2018-02-18 06:05] LABS: ALT/SGPT 31 U/l (0-40); Alkaline Phosphatase 66 U/L (39-117); Bilirubin,Direct < 0.2 mg/dL (0.0-0.3); Blood Urea Nitrogen 17 mg/dl (8-23); Gamma Glutamyl Transpeptidase 17 U/L (8-61); Uric Acid 1.8 mg/dL (2.5-8.0)
[2018-02-18 07:24] LABS: Band Neutrophils % 1 % (0-10); Lymphocytes % 2 % (15-49); Monocytes % (Manual) 2 % (1-12); Platelet Estimate NORMAL (NORMAL); RBC Morphology NORMAL (NORMAL); Segmented Neutrophils % 95 % (38-78)
[2018-02-18] MEDS: BUDESONIDE 0.5 MG/2 ML AMPUL.NEB NEB SCH ×2 (07:39→19:16)
[2018-02-18] MEDS: INSULIN LISPRO 1 UNIT/0.01 ML UNIT SQ SCH ×4 (07:40→20:51)
[2018-02-18] MEDS: LEVOFLOXACIN 750 MG/150 ML BAG IV SCH (09:06)
[2018-02-18] MEDS: methylPREDNISolone SOD SUCC 125 MG/2 ML VIAL IV SCH ×2 (09:06→20:52)
[2018-02-18] MEDS: DOCUSATE SODIUM 100 MG CAPSULE PO SCH ×2 (09:07→20:40)
[2018-02-18] MEDS: MULTIVIT,THER IRON,CA,FA & MIN 1 TABLET PO SCH (09:07)
[2018-02-18] MEDS: HEPARIN 5,000 UNIT/ML VIAL SQ SCH ×2 (09:07→20:52)
[2018-02-18] MEDS: SERTRALINE 50 MG TABLET PO SCH (09:07)
--- NOTE | 2018-02-18 14:25 | Internal Med Progress Note ---
Medical - PN: Subj Patient information: Note initiated : 02/18/18 at 2:23 pm Service Date, if different from initiated Date: [] Patient: Barry Light a 72 y/o M admitted on 02/15/18 for short of breath, cough. Chief Complaint: [] Interval history: Mr. 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 Barry has noted worsening shortness of breath along with increasing sputum production that has limited his functionality over the last 5 days. He tried to work with the symptoms however he failed to notice any improvement with bronchodilators. He has become increasingly labored even at rest. He also noted associated intermittent chills along with low-grade fever without sweats. He denied being exposed to sick contact. He subsequently presents to the ER initial workup was significant for profound hypoxia at 70% sats. Chest x-ray reveals multifocal pneumonia. He was started on antibiotic coverage after blood cultures were drawn. Hospitalist service was subsequently consulted for admission At the time of evaluation patient is very distressed trying to catch of breath and labored. Unable to talk in full sentences. No family present. He was able to provide answer to most of the questions in yes and no. He appears very anxious. He however feels slightly better with initial treatment in the ER. 02/16-patient status quo however was managed on BiPAP overnight, currently on trial of BiPAP. Persistent labored breathing. On broad antibiotic coverage. On dysphagic diet/ST eval. On IV steroids. White count improved from 15.7- 9.5. Strep pneumo/mycoplasma serologies negative. Improved tachycardia and tachypnea. ABG 7.4/50 7/50 compensated on BiPAP. -02/17-patient clinically improved since previous day however persistent shortness of breath. Was on trilogy ventilator at night. On antibiotic coverage. White count 15.1. Still unable to talk in full sentences. Son at bedside. Continue telemonitoring. Improved tachycardia. No overnight fever chills or major concerns per nursing staff. On antibiotic coverage. 02/18-patient doing a lot better. No overnight events. No fever chills. On 1/ 2 L oxygen during the day and trilogy ventilator at night. On antibiotic coverage. Intervals imaging on chest x-ray. No fever chills or concerns per staff. Tolerating dysphagic diet as per ST recommendations. Further ST evaluation today. Ongoing physical therapy. Anticipate discharge in 24-48 hours if continues to improve on oral antibiotics. White count down to 13.5. - Constitutional Vitals: Vital Signs Temp Pulse Resp BP Pulse Ox 98.0 F 96 H 20 120/64 95 02/18/18 11:20 02/18/18 11:36 02/18/18 11:36 02/18/18 11:20 02/18/18 11:20 Period Temp Pulse Resp BP Sys/Haas Pulse Ox Last 24 Hr 97.3 F-98.9 F 73-109 20-28 110-146/57-69 93-99 Intake and Output 02/18/18 02/18/18 02/18/18 05:59 13:59 21:59 Intake Total 660 / 660 1210 / 1210 Output Total 350 / 350 1015 / 1015 Balance 310 / 310 195 / 195 Weight 149 lb 8 oz Patient Weight 02/19/18 05:59 Weight 149 lb 8 oz Intake & Output: Intake & Output 02/18/18 02/18/18 02/18/18 05:59 13:59 21:59 Intake Total 660 / 660 1210 / 1210 Output Total 350 / 350 1015 / 1015 Balance 310 / 310 195 / 195 Weight 149 lb 8 oz Intake: IV 300 / 300 250 / 250 Zosyn 3.375 gm In Dextrose 5% 50 / 50 100 / 100 in Water 50 ml @ 100 mls/hr IV Q6H [facility] Rx#:[id number] Vancomycin 1,000 mg In Sodium 250 / 250 Chloride 0.9% 250 ml @ 250 mls/ hr IV Q12H [facility] Rx#:[id number] Oral 360 / 360 960 / 960 Output: Void Amount 350 / 350 1015 / 1015 Other: Meal Lunch Percent of Meal Consumed 75% Feeding Ability Independent Urine Appearance Clear Urine Color Straw Urine Odor Normal Stool Size Small Stool Color Brown Stool Consistency Formed # Voids 1 # Bowel Movements 1 General appearance: no acute distress Exam: Alert and oriented Able to talk in full sentences Nondistressed nonlabored breathing on 1.5 years oxygen No lymphedema Medical - PN: Obj Da - Labs CBC & Chem 7: 02/18/18 03:41 02/18/18 03:41 Labs: Abnormal Lab Results 02/18/18 02/18/18 02/17/18 03:41 03:41 03:40 WBC 13.5 H RBC 4.35 L Hgb 13.1 L Hct 39.4 L Seg Neutrophils % 95 H Lymphocytes % 2 L Nucleated RBCs Carbon Dioxide 32 H Creatinine 0.6 L 0.6 L Glucose 210 H 192 H Uric Acid 1.8 L 1.7 L Calcium Phosphorus Albumin 3.0 L 2.9 L Globulin Albumin/Globulin Ratio 0.9 L 02/17/18 02/16/18 02/16/18 03:40 03:46 03:46 WBC 15.1 H RBC 3.99 L 4.23 L Hgb 12.1 L 12.6 L Hct 35.8 L 37.9 L Seg Neutrophils % 90 H 92 H Lymphocytes % 6 L 7 L Nucleated RBCs 1 H Carbon Dioxide Creatinine Glucose 291 H Uric Acid 2.2 L Calcium 8.5 L Phosphorus 2.1 L Albumin 2.8 L Globulin Albumin/Globulin Ratio 0.8 L 02/15/18 02/15/18 14:36 14:36 WBC 15.7 H RBC Hgb Hct Seg Neutrophils % Lymphocytes % 8 L Nucleated RBCs Carbon Dioxide 33 H Creatinine Glucose 128 H Uric Acid Calcium Phosphorus Albumin Globulin 4.0 H Albumin/Globulin Ratio 0.9 L Meds: Medications Acetaminophen (Tylenol) 650 mg PO Q4-6HP PRN PRN Reason: PAIN/FEVER > 101 Hydrocodone Bitart/Acetaminophen ([place] 5/325mg) 1 - 2 tab PO Q4HP PRN PRN Reason: Pain Albuterol/Ipratropium (Duoneb) 3 ml NEB Q4HRT [facility] Last Admin: 02/18/18 11:36 Dose: 3 ml Budesonide (Pulmicort) 0.5 mg NEB Q12 [facility] Last Admin: 02/18/18 07:39 Dose: 0.5 mg Diagnostic Test (Pha) (Accu-Chek) 1 each FS ACHS [facility] Last Admin: 02/18/18 11:11 Dose: 1 each Docusate Sodium (Colace) 100 mg PO BID [facility] Last Admin: 02/18/18 09:07 Dose: Not Given Guaifenesin/Codeine Phosphate (Robitussin Ac) 10 ml PO Q4HP PRN PRN Reason: Cough Heparin Sodium (Porcine) (Heparin) 5,000 unit SQ Q12 [facility] Last Admin: 02/18/18 09:07 Dose: 5,000 unit Magnesium Sulfate (Magnesium Sulfate) 2 gm in 50 mls @ 50 mls/hr IV UD PRN PRN Reason: MG = or < 1.7 Acetaminophen (Ofirmev) 1,000 mg in 100 mls @ 200 mls/hr IV Q6HP PRN PRN Reason: PAIN/FEVER > 101 Piperacillin Sod/Tazobactam (Sod 3.375 gm/ Dextrose) 50 mls @ 100 mls/hr IV Q6H [facility] Last Infusion: 02/18/18 12:00 Dose: Infused Vancomycin HCl 1,000 mg/ (Sodium Chloride) 250 mls @ 250 mls/hr IV Q12H [facility] Last Admin: 02/18/18 12:47 Dose: 250 mls/hr Levofloxacin (Levaquin) 750 mg in 150 mls @ 100 mls/hr IV Q24H [facility] Last Infusion: 02/18/18 10:40 Dose: Infused Insulin Human Lispro (Humalog) 0 unit SQ ACHS [facility]; Protocol Last Admin: 02/18/18 11:23 Dose: 2 unit Iron Carb/Multivit/[employer]/Folic Acid (Multivitamin W/Minerals) 1 tab PO DAILY [facility] Last Admin: 02/18/18 09:07 Dose: 1 tab Methylprednisolone Sodium Succinate (Solu-Medrol) 60 mg IV BID [facility] Last Admin: 02/18/18 09:06 Dose: 60 mg Ondansetron HCl (Zofran) 4 mg IV Q4-6HP PRN PRN Reason: Nausea And Vomiting Potassium Chloride (Klor-Con) 40 meq PO DAILYP PRN PRN Reason: K+ < 3.5 Senna/Docusate Sodium (Senna Plus Tablet) 1 tab PO HS [facility] Last Admin: 02/17/18 20:06 Dose: Not Given Sertraline HCl (Zoloft) 100 mg PO DAILY [facility] Last Admin: 02/18/18 09:07 Dose: 100 mg Sodium Chloride (Saline Flush) 10 ml IV Q8 [facility] Last Admin: 02/18/18 05:55 Dose: Not Given Vancomycin HCl (Vancomycin Per Pharmacy) 1 order IV [facility] [place] Medical - PN: A/P - Time Spent With Patient Total time spent is greater than 50% in coordination of care (as documented) at patient's floor/unit and/or counseling patient: 25 - 35 minutes (1) Sepsis associated with vascular access catheter Status: Acute Assessment and plan: * Acute hypoxic respiratory failure secondary to underlying end-stage COPD/ multifocal pneumonia-clinical improvement noted. On 1.5 L oxygen during day and trilogy ventilator at night. Continue antibiotic coverage/aspiration precautions. Improved interval imaging * Multifocal pneumonia likely aspiration-Continue Zosyn for gram-negative/ anaerobes/ aspiration precautions. Dysphagia diet. Await further ST eval recommendations. * Sepsis secondary to multifocal pneumonia-white count downtrending at 13 today * End-stage oxygen COPD /-oxygen/steroids/bronchodilators * Anxiety/depression continue SSRI * DJD continue as needed opioids * Prophylaxis heparin Plan * Continue existing treatment * Transition to oral steroids in 24 hours * Continue noninvasive ventilation as indicated * Prior medical condition management as above * Likely discharge in 48 hours Current Visit: Yes Medical - PN: Qual - VTE Deep Vein Thrombosis/Pulmonary Embolism Present on Admission: No
[2018-02-18] MEDS: SENNOSIDES/DOCUSATE SODIUM 1 TAB TABLET PO SCH (20:44)
[2018-02-19] MEDS: VANCOMYCIN 1,000 MG in 0.9 % SODIUM CHLORIDE 250 ML IV SCH ×3 (00:32→23:45)
[2018-02-19] MEDS: IPRATROPIUM/ALBUTEROL 3 ML AMPUL.NEB NEB SCH ×6 (02:58→22:59)
[2018-02-19] MEDS: PIPERACILLIN SODIUM/TAZOBACTAM 3.375 GM in DEXTROSE 5% IN WATER 50 ML IV SCH ×5 (05:59→23:45)
[2018-02-19] MEDS: 0.9 % SODIUM CHLORIDE 10 ML SYRINGE IV SCH ×3 (06:00→20:50)
[2018-02-19 06:09] LABS: Mean Cell Volume 90.8 fL (80.0-100.0); Mean Corpuscular HGB Conc 32.9 g/dL (31.0-36.0); Mean Corpuscular Hemoglobin 29.9 pg (26.0-34.0); Platelet Count 261 K/mcL (140-440); RBC 4.49 M/mcL (4.50-5.90); Red Cell Distribution Width 12.7 % (11.5-14.5)
[2018-02-19 06:28] LABS: ALT/SGPT 32 U/l (0-40); Albumin 3.1 gm/dL (3.2-5.2); Alkaline Phosphatase 64 U/L (39-117); Bilirubin,Direct < 0.2 mg/dL (0.0-0.3); Blood Urea Nitrogen 17 mg/dl (8-23); Gamma Glutamyl Transpeptidase 18 U/L (8-61); Uric Acid 1.5 mg/dL (2.5-8.0)
[2018-02-19 07:45] LABS: Band Neutrophils % 2 % (0-10); Lymphocytes % 3 % (15-49); Monocytes % (Manual) 3 % (1-12); Platelet Estimate NORMAL (NORMAL); RBC Morphology NORMAL (NORMAL); Segmented Neutrophils % 92 % (38-78)
[2018-02-19] MEDS: methylPREDNISolone SOD SUCC 125 MG/2 ML VIAL IV SCH ×2 (08:06→20:50)
[2018-02-19] MEDS: SERTRALINE 50 MG TABLET PO SCH (08:07)
[2018-02-19] MEDS: MULTIVIT,THER IRON,CA,FA & MIN 1 TABLET PO SCH (08:07)
[2018-02-19] MEDS: INSULIN LISPRO 1 UNIT/0.01 ML UNIT SQ SCH ×4 (08:08→20:49)
[2018-02-19] MEDS: HEPARIN 5,000 UNIT/ML VIAL SQ SCH ×2 (08:09→20:50)
[2018-02-19] MEDS: DOCUSATE SODIUM 100 MG CAPSULE PO SCH ×2 (08:10→20:49)
[2018-02-19] MEDS: LEVOFLOXACIN 750 MG/150 ML BAG IV SCH (08:15)
[2018-02-19] MEDS: BUDESONIDE 0.5 MG/2 ML AMPUL.NEB NEB SCH ×2 (08:59→18:52)
--- NOTE | 2018-02-19 09:39 | Internal Med Progress Note ---
Medical - PN: Subj Patient information: Note initiated : 02/19/18 at 9:34 am Service Date, if different from initiated Date: [] Patient: Barry Light a 72 y/o M admitted on 02/15/18 for short of breath, cough. Chief Complaint: [] Interval history: Mr. 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 Barry has noted worsening shortness of breath along with increasing sputum production that has limited his functionality over the last 5 days. He tried to work with the symptoms however he failed to notice any improvement with bronchodilators. He has become increasingly labored even at rest. He also noted associated intermittent chills along with low-grade fever without sweats. He denied being exposed to sick contact. He subsequently presents to the ER initial workup was significant for profound hypoxia at 70% sats. Chest x-ray reveals multifocal pneumonia. He was started on antibiotic coverage after blood cultures were drawn. Hospitalist service was subsequently consulted for admission At the time of evaluation patient is very distressed trying to catch of breath and labored. Unable to talk in full sentences. No family present. He was able to provide answer to most of the questions in yes and no. He appears very anxious. He however feels slightly better with initial treatment in the ER. 02/16-patient status quo however was managed on BiPAP overnight, currently on trial of BiPAP. Persistent labored breathing. On broad antibiotic coverage. On dysphagic diet/ST eval. On IV steroids. White count improved from 15.7- 9.5. Strep pneumo/mycoplasma serologies negative. Improved tachycardia and tachypnea. ABG 7.4/50 7/50 compensated on BiPAP. -02/17-patient clinically improved since previous day however persistent shortness of breath. Was on trilogy ventilator at night. On antibiotic coverage. White count 15.1. Still unable to talk in full sentences. Son at bedside. Continue telemonitoring. Improved tachycardia. No overnight fever chills or major concerns per nursing staff. On antibiotic coverage. 02/18-patient doing a lot better. No overnight events. No fever chills. On 1/ 2 L oxygen during the day and trilogy ventilator at night. On antibiotic coverage. Intervals imaging on chest x-ray. No fever chills or concerns per staff. Tolerating dysphagic diet as per ST recommendations. Further ST evaluation today. Ongoing physical therapy. Anticipate discharge in 24-48 hours if continues to improve on oral antibiotics. White count down to 13.5. 02/19-patient feeling extremely short of breath this morning. Was only able to get out of bed to chair. Was on nocturnal vent. Very gradual clinical improvement in light of end-stage COPD. No family at bedside. White count down to 12.3. Continue twice daily Solu-Medrol/bronchodilators. Anticipate discharge in 48 hours once clinically back to baseline - Constitutional Vitals: Vital Signs Temp Pulse Resp BP Pulse Ox 97.0 F 94 H 16 128/88 96 02/19/18 04:00 02/19/18 09:03 02/19/18 09:03 02/19/18 04:00 02/19/18 08:54 Period Temp Pulse Resp BP Sys/Haas Pulse Ox Last 24 Hr 97.0 F-98.5 F 81-113 16-26 120-139/64-88 92-96 Intake and Output 02/18/18 02/19/18 02/19/18 21:59 05:59 13:59 Intake Total 1060 / 1060 50 / 50 Output Total 1075 / 1075 650 / 650 Balance -15 / -15 -600 / -600 Weight 145 lb Intake & Output: Intake & Output 02/18/18 02/19/18 02/19/18 21:59 05:59 13:59 Intake Total 1060 / 1060 50 / 50 Output Total 1075 / 1075 650 / 650 Balance -15 / -15 -600 / -600 Weight 145 lb Intake: IV 300 / 300 50 / 50 Zosyn 3.375 gm In Dextrose 5% 50 / 50 50 / 50 in Water 50 ml @ 100 mls/hr IV Q6H [facility] Rx#:[id number] Vancomycin 1,000 mg In Sodium 250 / 250 Chloride 0.9% 250 ml @ 250 mls/ hr IV Q12H [facility] Rx#:[id number] Oral 760 / 760 Output: Void Amount 1075 / 1075 650 / 650 Other: Meal Dinner Percent of Meal Consumed 75% Feeding Ability Independent Urine Appearance Clear Urine Color Pale # Voids 1 # Bowel Movements 1 1 General appearance: cooperative, no acute distress Exam: Alert oriented and very anxious Extremely labored breathing Nondistended abdomen Medical - PN: Obj Da - Labs CBC & Chem 7: 02/19/18 03:34 02/19/18 03:34 Labs: Abnormal Lab Results 02/19/18 02/19/18 02/18/18 03:34 03:34 03:41 WBC 12.3 H RBC 4.49 L Hgb 13.4 L Hct 40.8 L Seg Neutrophils % 92 H Lymphocytes % 3 L Nucleated RBCs Carbon Dioxide 37 H 32 H Anion Gap 6.0 L Creatinine 0.6 L Glucose 265 H 210 H Uric Acid 1.5 L 1.8 L Phosphorus 2.5 L Albumin 3.1 L 3.0 L Albumin/Globulin Ratio 02/18/18 02/17/18 02/17/18 03:41 03:40 03:40 WBC 13.5 H 15.1 H RBC 4.35 L 3.99 L Hgb 13.1 L 12.1 L Hct 39.4 L 35.8 L Seg Neutrophils % 95 H 90 H Lymphocytes % 2 L 6 L Nucleated RBCs 1 H Carbon Dioxide Anion Gap Creatinine 0.6 L Glucose 192 H Uric Acid 1.7 L Phosphorus Albumin 2.9 L Albumin/Globulin Ratio 0.9 L Meds: Medications Acetaminophen (Tylenol) 650 mg PO Q4-6HP PRN PRN Reason: PAIN/FEVER > 101 Hydrocodone Bitart/Acetaminophen ([place] 5/325mg) 1 - 2 tab PO Q4HP PRN PRN Reason: Pain Albuterol/Ipratropium (Duoneb) 3 ml NEB Q4HRT [facility] Last Admin: 02/19/18 08:59 Dose: 3 ml Budesonide (Pulmicort) 0.5 mg NEB Q12 [facility] Last Admin: 02/19/18 08:59 Dose: 0.5 mg Diagnostic Test (Pha) (Accu-Chek) 1 each FS ACHS [facility] Last Admin: 02/19/18 08:07 Dose: 1 each Docusate Sodium (Colace) 100 mg PO BID [facility] Last Admin: 02/19/18 08:10 Dose: Not Given Guaifenesin/Codeine Phosphate (Robitussin Ac) 10 ml PO Q4HP PRN PRN Reason: Cough Heparin Sodium (Porcine) (Heparin) 5,000 unit SQ Q12 [facility] Last Admin: 02/19/18 08:09 Dose: 5,000 unit Magnesium Sulfate (Magnesium Sulfate) 2 gm in 50 mls @ 50 mls/hr IV UD PRN PRN Reason: MG = or < 1.7 Acetaminophen (Ofirmev) 1,000 mg in 100 mls @ 200 mls/hr IV Q6HP PRN PRN Reason: PAIN/FEVER > 101 Piperacillin Sod/Tazobactam (Sod 3.375 gm/ Dextrose) 50 mls @ 100 mls/hr IV Q6H [facility] Last Admin: 02/19/18 05:59 Dose: 100 mls/hr Vancomycin HCl 1,000 mg/ (Sodium Chloride) 250 mls @ 250 mls/hr IV Q12H [facility] Last Admin: 02/19/18 00:32 Dose: 250 mls/hr Levofloxacin (Levaquin) 750 mg in 150 mls @ 100 mls/hr IV Q24H [facility] Last Admin: 02/19/18 08:15 Dose: 100 mls/hr Insulin Human Lispro (Humalog) 0 unit SQ ACHS [facility]; Protocol Last Admin: 02/19/18 08:08 Dose: 1 unit Iron Carb/Multivit/Supervisor [employer]ishing/Folic Acid (Multivitamin W/Minerals) 1 tab PO DAILY [facility] Last Admin: 02/19/18 08:07 Dose: 1 tab Methylprednisolone Sodium Succinate (Solu-Medrol) 60 mg IV BID [facility] Last Admin: 02/19/18 08:06 Dose: 60 mg Ondansetron HCl (Zofran) 4 mg IV Q4-6HP PRN PRN Reason: Nausea And Vomiting Potassium Chloride (Klor-Con) 40 meq PO DAILYP PRN PRN Reason: K+ < 3.5 Senna/Docusate Sodium (Senna Plus Tablet) 1 tab PO HS [facility] Last Admin: 02/18/18 20:44 Dose: Not Given Sertraline HCl (Zoloft) 100 mg PO DAILY [facility] Last Admin: 02/19/18 08:07 Dose: 100 mg Sodium Chloride (Saline Flush) 10 ml IV Q8 [facility] Last Admin: 02/19/18 06:00 Dose: 10 ml Vancomycin HCl (Vancomycin Per Pharmacy) 1 order IV UD [facility] Medical - PN: A/P - Time Spent With Patient Total time spent is greater than 50% in coordination of care (as documented) at patient's floor/unit and/or counseling patient: 25 - 35 minutes (1) Sepsis associated with vascular access catheter Status: Acute Assessment and plan: * Acute hypoxic respiratory failure secondary to underlying end-stage COPD/ multifocal pneumonia-very slow clinical improvement. Off nocturnal vent this morning . However very dyspneic. On 2 L oxygen. Continue antibiotic coverage/ aspiration precautions. * Multifocal pneumonia likely aspiration-radiological and clinical improvement noted on Zosyn. Continue aspiration precautions. Diet per ST recommendations * End-stage oxygen COPD with acute exacerbation-oxygen/steroids/bronchodilators * Sepsis secondary to multifocal pneumonia-white count downtrending. * Anxiety/depression continue SSRI * DJD continue as needed opioids * Prophylaxis heparin Plan * Continue antibiotics/steroids and supplemental oxygen * Continue oxygen support/nocturnal vent * Prior medical condition management as above * PT OT * Discharge once clinically near baseline Current Visit: Yes Medical - PN: Qual - VTE Deep Vein Thrombosis/Pulmonary Embolism Present on Admission: No
[2018-02-19] MEDS: SENNOSIDES/DOCUSATE SODIUM 1 TAB TABLET PO SCH (20:50)
[2018-02-20] MEDS: IPRATROPIUM/ALBUTEROL 3 ML AMPUL.NEB NEB SCH ×6 (04:09→22:43)
[2018-02-20 05:23] LABS: Mean Corpuscular HGB Conc 33.3 g/dL (31.0-36.0); Platelet Count 249 K/mcL (140-440); RBC 4.45 M/mcL (4.50-5.90); Red Cell Distribution Width 12.7 % (11.5-14.5)
[2018-02-20] MEDS: PIPERACILLIN SODIUM/TAZOBACTAM 3.375 GM in DEXTROSE 5% IN WATER 50 ML IV SCH ×4 (05:31→23:58)
[2018-02-20] MEDS: 0.9 % SODIUM CHLORIDE 10 ML SYRINGE IV SCH ×3 (05:31→20:38)
[2018-02-20 05:44] LABS: ALT/SGPT 32 U/l (0-40); Albumin 3.1 gm/dL (3.2-5.2); Albumin/Globulin Ratio 1.1 (1.0-2.3); Alkaline Phosphatase 59 U/L (39-117); Bilirubin,Direct < 0.2 mg/dL (0.0-0.3); Blood Urea Nitrogen 18 mg/dl (8-23); Gamma Glutamyl Transpeptidase 19 U/L (8-61); Uric Acid 1.7 mg/dL (2.5-8.0)
[2018-02-20 06:06] LABS: Band Neutrophils % 3 % (0-10); Lymphocytes % 9 % (15-49); Monocytes % (Manual) 3 % (1-12); Platelet Estimate NORMAL (NORMAL); RBC Morphology NORMAL (NORMAL); Segmented Neutrophils % 85 % (38-78)
[2018-02-20] MEDS: BUDESONIDE 0.5 MG/2 ML AMPUL.NEB NEB SCH ×2 (07:44→19:07)
[2018-02-20] MEDS: INSULIN LISPRO 1 UNIT/0.01 ML UNIT SQ SCH ×4 (08:36→20:38)
[2018-02-20] MEDS: DOCUSATE SODIUM 100 MG CAPSULE PO SCH ×3 (08:36→20:46)
[2018-02-20] MEDS: LEVOFLOXACIN 750 MG/150 ML BAG IV SCH (09:00)
[2018-02-20] MEDS: MULTIVIT,THER IRON,CA,FA & MIN 1 TABLET PO SCH (09:36)
[2018-02-20] MEDS: methylPREDNISolone SOD SUCC 125 MG/2 ML VIAL IV SCH ×2 (09:36→20:37)
[2018-02-20] MEDS: HEPARIN 5,000 UNIT/ML VIAL SQ SCH ×2 (09:36→20:37)
[2018-02-20] MEDS: SERTRALINE 50 MG TABLET PO SCH (09:36)
--- NOTE | 2018-02-20 11:03 | Internal Med Progress Note ---
Medical - PN: Subj Patient information: Note initiated : 02/20/18 at 11:01 am Service Date, if different from initiated Date: [] Patient: Barry Light a 72 y/o M admitted on 02/15/18 for short of breath, cough. Chief Complaint: [] Interval history: Mr. 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 Barry has noted worsening shortness of breath along with increasing sputum production that has limited his functionality over the last 5 days. He tried to work with the symptoms however he failed to notice any improvement with bronchodilators. He has become increasingly labored even at rest. He also noted associated intermittent chills along with low-grade fever without sweats. He denied being exposed to sick contact. He subsequently presents to the ER initial workup was significant for profound hypoxia at 70% sats. Chest x-ray reveals multifocal pneumonia. He was started on antibiotic coverage after blood cultures were drawn. Hospitalist service was subsequently consulted for admission At the time of evaluation patient is very distressed trying to catch of breath and labored. Unable to talk in full sentences. No family present. He was able to provide answer to most of the questions in yes and no. He appears very anxious. He however feels slightly better with initial treatment in the ER. 02/16-patient status quo however was managed on BiPAP overnight, currently on trial of BiPAP. Persistent labored breathing. On broad antibiotic coverage. On dysphagic diet/ST eval. On IV steroids. White count improved from 15.7- 9.5. Strep pneumo/mycoplasma serologies negative. Improved tachycardia and tachypnea. ABG 7.4/50 7/50 compensated on BiPAP. -02/17-patient clinically improved since previous day however persistent shortness of breath. Was on trilogy ventilator at night. On antibiotic coverage. White count 15.1. Still unable to talk in full sentences. Son at bedside. Continue telemonitoring. Improved tachycardia. No overnight fever chills or major concerns per nursing staff. On antibiotic coverage. 02/18-patient doing a lot better. No overnight events. No fever chills. On 1/ 2 L oxygen during the day and trilogy ventilator at night. On antibiotic coverage. Intervals imaging on chest x-ray. No fever chills or concerns per staff. Tolerating dysphagic diet as per ST recommendations. Further ST evaluation today. Ongoing physical therapy. Anticipate discharge in 24-48 hours if continues to improve on oral antibiotics. White count down to 13.5. 02/19-patient feeling extremely short of breath this morning. Was only able to get out of bed to chair. Was on nocturnal vent. Very gradual clinical improvement in light of end-stage COPD. No family at bedside. White count down to 12.3. Continue twice daily Solu-Medrol/bronchodilators. Anticipate discharge in 48 hours once clinically back to baseline 02/20 Pt seen examined no acute overnight issues, tolerating po diet well, he is feeling better, but still short of breath, he feels however he is improving back to baseline. His oxygen saturations drop with minimal activity. was on 3 L oxygen, being weaned down, if able to wean down to baseline, will d/ c him in AM Pertinent ROS: Denies headache, dizziness Denies chest pain, palpitations cough or shortness of breath (stable and improving) Denies abdominal pain, nausea or vomiting. - Constitutional Vitals: Vital Signs Temp Pulse Resp BP Pulse Ox 98.9 F 91 H 20 130/78 98 02/19/18 20:00 02/20/18 08:00 02/20/18 08:00 02/20/18 04:11 02/20/18 07:45 Period Temp Pulse Resp BP Sys/Haas Pulse Ox Last 24 Hr 98.0 F-98.9 F 77-130 18-24 128-135/76-85 92-98 Intake and Output 02/19/18 02/20/18 02/20/18 21:59 05:59 13:59 Intake Total 100 / 100 300 / 300 50 / 50 Output Total 500 / 500 1850 / 1850 925 / 925 Balance -400 / -400 -1550 / -1550 -875 / -875 Weight 146 lb Intake & Output: Intake & Output 02/19/18 02/20/18 02/20/18 21:59 05:59 13:59 Intake Total 100 / 100 300 / 300 50 / 50 Output Total 500 / 500 1850 / 1850 925 / 925 Balance -400 / -400 -1550 / -1550 -875 / -875 Weight 146 lb Intake: IV 100 / 100 300 / 300 50 / 50 Zosyn 3.375 gm In Dextrose 5% 100 / 100 50 / 50 50 / 50 in Water 50 ml @ 100 mls/hr IV Q6H [facility] Rx#:[id number] Vancomycin 1,000 mg In Sodium 250 / 250 Chloride 0.9% 250 ml @ 250 mls/ hr IV Q12H [facility] Rx#:[id number] Output: Urine Catheter Amount 300 / 300 Void Amount 200 / 200 1850 / 1850 925 / 925 Other: Meal Dinner Percent of Meal Consumed 100% Urine Appearance Clear Clear Urine Color Bright Yellow Bright Yellow Urine Odor Normal Stool Size Small Stool Color Brown Stool Consistency Formed # Bowel Movements 1 1 Exam: Constitutional; Afebrile, cooperative, alert, not in distress. Respiratory system: Air Entry equal on both sides but decreased, No crackles or wheezing, no rhonchi. CVS- Rate rhythm regular, S1,S2 heard, no gallop, no rub. Abdomen- Soft nontender abdomen, no organomegaly, no tenderness, no guarding or rigidity, INTRANET SUPPORT- AOOx3, moving all extremities, no gross focal deficit noted. Medical - PN: Obj Da - Labs CBC & Chem 7: 02/20/18 03:45 02/20/18 03:45 Labs: Abnormal Lab Results 02/20/18 02/20/18 02/19/18 03:45 03:45 03:34 WBC 12.9 H RBC 4.45 L Hgb 13.4 L Hct 40.1 L Seg Neutrophils % 85 H Lymphocytes % 9 L Carbon Dioxide 35 H 37 H Anion Gap 6.0 L 6.0 L Creatinine 0.6 L Glucose 265 H 265 H Uric Acid 1.7 L 1.5 L Phosphorus 2.6 L 2.5 L Total Protein 5.8 L Albumin 3.1 L 3.1 L 02/19/18 02/18/18 02/18/18 03:34 03:41 03:41 WBC 12.3 H 13.5 H RBC 4.49 L 4.35 L Hgb 13.4 L 13.1 L Hct 40.8 L 39.4 L Seg Neutrophils % 92 H 95 H Lymphocytes % 3 L 2 L Carbon Dioxide 32 H Anion Gap Creatinine 0.6 L Glucose 210 H Uric Acid 1.8 L Phosphorus Total Protein Albumin 3.0 L Meds: Medications Acetaminophen (Tylenol) 650 mg PO Q4-6HP PRN PRN Reason: PAIN/FEVER > 101 Hydrocodone Bitart/Acetaminophen ([place] 5/325mg) 1 - 2 tab PO Q4HP PRN PRN Reason: Pain Albuterol/Ipratropium (Duoneb) 3 ml NEB Q4HRT [facility] Last Admin: 02/20/18 07:44 Dose: 3 ml Budesonide (Pulmicort) 0.5 mg NEB Q12 [facility] Last Admin: 02/20/18 07:44 Dose: 0.5 mg Diagnostic Test (Pha) (Accu-Chek) 1 each FS ACHS [facility] Last Admin: 02/20/18 08:33 Dose: 1 each Docusate Sodium (Colace) 100 mg PO BID [facility] Last Admin: 02/20/18 08:36 Dose: Not Given Guaifenesin/Codeine Phosphate (Robitussin Ac) 10 ml PO Q4HP PRN PRN Reason: Cough Heparin Sodium (Porcine) (Heparin) 5,000 unit SQ Q12 [facility] Last Admin: 02/19/18 20:50 Dose: 5,000 unit Magnesium Sulfate (Magnesium Sulfate) 2 gm in 50 mls @ 50 mls/hr IV UD PRN PRN Reason: MG = or < 1.7 Acetaminophen (Ofirmev) 1,000 mg in 100 mls @ 200 mls/hr IV Q6HP PRN PRN Reason: PAIN/FEVER > 101 Piperacillin Sod/Tazobactam (Sod 3.375 gm/ Dextrose) 50 mls @ 100 mls/hr IV Q6H [facility] Last Infusion: 02/20/18 06:01 Dose: Infused Vancomycin HCl 1,000 mg/ (Sodium Chloride) 250 mls @ 250 mls/hr IV Q12H [facility] Last Infusion: 02/20/18 01:17 Dose: Infused Levofloxacin (Levaquin) 750 mg in 150 mls @ 100 mls/hr IV Q24H [facility] Last Infusion: 02/19/18 12:11 Dose: Infused Insulin Human Lispro (Humalog) 0 unit SQ ACHS [facility]; Protocol Last Admin: 02/20/18 08:36 Dose: 1 unit Iron Carb/Multivit/Annealing Oven Operator/Folic Acid (Multivitamin W/Minerals) 1 tab PO DAILY [facility] Last Admin: 02/19/18 08:07 Dose: 1 tab Methylprednisolone Sodium Succinate (Solu-Medrol) 60 mg IV BID [facility] Last Admin: 02/19/18 20:50 Dose: 60 mg Ondansetron HCl (Zofran) 4 mg IV Q4-6HP PRN PRN Reason: Nausea And Vomiting Potassium Chloride (Klor-Con) 40 meq PO DAILYP PRN PRN Reason: K+ < 3.5 Senna/Docusate Sodium (Senna Plus Tablet) 1 tab PO HS [facility] Last Admin: 02/19/18 20:50 Dose: Not Given Sertraline HCl (Zoloft) 100 mg PO DAILY [facility] Last Admin: 02/19/18 08:07 Dose: 100 mg Sodium Chloride (Saline Flush) 10 ml IV Q8 [facility] Last Admin: 02/20/18 05:31 Dose: 10 ml Vancomycin HCl (Vancomycin Per Pharmacy) 1 order IV UD [facility] Medical - PN: A/P - Time Spent With Patient Total time spent is greater than 50% in coordination of care (as documented) at patient's floor/unit and/or counseling patient: - Narrative A/P Narrative: A/P Acute hypoxic respiratory failure- End stage COPD- on Trilege bipap at night, on 1 L oxyge at baseline at home, pt was on 3 L oxygen this AM and oxygen drops with minilam activity, being weaned off oxygen gradually,. Multifocal pneumonia- on zosyn, improving, continue same COPD-on bipap/ bronchodilators/steroids/ continue same Anxiety/depression- ssri Sepsis- resolved Chr pain/ DJD- continue home medications DVT hep sq OT/PT Anticipate d/c in AM if able to go back to baseline oxygen needs. * Medical - PN: Qual - VTE Deep Vein Thrombosis/Pulmonary Embolism Present on Admission: No
[2018-02-20] MEDS: VANCOMYCIN 1,000 MG in 0.9 % SODIUM CHLORIDE 250 ML IV SCH (11:06)
[2018-02-20] MEDS: SENNOSIDES/DOCUSATE SODIUM 1 TAB TABLET PO SCH ×2 (20:37→20:46)
[2018-02-21] MEDS: VANCOMYCIN 1,000 MG in 0.9 % SODIUM CHLORIDE 250 ML IV SCH ×2 (00:27→09:34)
[2018-02-21] MEDS: IPRATROPIUM/ALBUTEROL 3 ML AMPUL.NEB NEB SCH ×3 (03:52→10:53)
[2018-02-21] MEDS: 0.9 % SODIUM CHLORIDE 10 ML SYRINGE IV SCH (05:35)
[2018-02-21] MEDS: PIPERACILLIN SODIUM/TAZOBACTAM 3.375 GM in DEXTROSE 5% IN WATER 50 ML IV SCH ×2 (05:35→11:35)
[2018-02-21 06:19] LABS: ALT/SGPT 39 U/l (0-40); Albumin/Globulin Ratio 1.1 (1.0-2.3); Alkaline Phosphatase 56 U/L (39-117); Basophils # (Auto) 0 K/mcL (0.0-0.3); Basophils % (Auto) 0 % (0.0-2.0); Bilirubin,Direct < 0.2 mg/dL (0.0-0.3); Blood Urea Nitrogen 22 mg/dl (8-23); Eosinophils # (Auto) 0 K/mcL (0.0-0.7); Eosinophils % (Auto) 0 % (0.0-7.0); Gamma Glutamyl Transpeptidase 19 U/L (8-61); Granulocytes % (Auto) 95.1 % (38.0-78.0); Lymphocytes # (Auto) 0.5 K/mcL (1.5-4.8); Lymphocytes % (Auto) 3.8 % (15.5-49.0); Mean Cell Volume 90.2 fL (80.0-100.0); Mean Corpuscular HGB Conc 33.6 g/dL (31.0-36.0); Mean Corpuscular Hemoglobin 30.3 pg (26.0-34.0); Monocytes # (Auto) 0.1 K/mcL (0.1-0.9); Monocytes % (Auto) 1.1 % (1.0-12.0); Platelet Count 259 K/mcL (140-440); RBC 4.49 M/mcL (4.50-5.90); Red Cell Distribution Width 12.6 % (11.5-14.5); Uric Acid 1.9 mg/dL (2.5-8.0)
[2018-02-21] MEDS: BUDESONIDE 0.5 MG/2 ML AMPUL.NEB NEB SCH (07:12)
[2018-02-21] MEDS: INSULIN LISPRO 1 UNIT/0.01 ML UNIT SQ SCH ×2 (07:46→11:40)
[2018-02-21] MEDS: LEVOFLOXACIN 750 MG/150 ML BAG IV SCH (09:34)
[2018-02-21] MEDS: methylPREDNISolone SOD SUCC 125 MG/2 ML VIAL IV SCH (09:46)
[2018-02-21] MEDS: HEPARIN 5,000 UNIT/ML VIAL SQ SCH (09:46)
[2018-02-21] MEDS: SERTRALINE 50 MG TABLET PO SCH (09:47)
[2018-02-21] MEDS: DOCUSATE SODIUM 100 MG CAPSULE PO SCH (09:47)
[2018-02-21] MEDS: MULTIVIT,THER IRON,CA,FA & MIN 1 TABLET PO SCH (09:47)
--- NOTE | 2018-02-21 09:50 | Discharge Summary ---
Medical - DS: Prov Patient information: Note initiated : 02/21/18 at 9:43 am Service Date, if different from initiated Date: [] Patient: Barry Light 72 y/o M admitted on 02/15/18 for short of breath, cough. Chief Complaint: [] Date of admission: 02/15/18 20:12 Discharge date: 02/21/18 Primary care physician: Jade Lema Consults: 02/15/18 Consult to Physician [CONS] Stat Comment: Consulting Provider: Avelino Caicedo Reason For Exam: Physician to Consult Discharging clinician: [facility] - DS: Meds - Discharge Medications Prescriptions: Levofloxacin [Levaquin] 750 mg PO DAILY #2 tab predniSONE [Prednisone] 40 mg PO [facility] #23 tab Active and Home Medications: Home Medications HYDROcodone/APAP 5/325MG [[place] 5-325Mg] 1 - 2 tab PO Q4HP PRN 11/14/15 [ History Confirmed 02/15/18 Last Taken 02/11/18 18:00] Roflumilast [Daliresp] 500 mcg PO DAILY 11/14/15 [History Confirmed 02/15/18 Last Taken 02/15/18 08:30] Sertraline HCl [Zoloft] 100 mg PO DAILY 11/14/15 [History Confirmed 02/15/18 Last Taken 02/15/18 08:30] formoterol fumarate 20 mcg/2 mL solution for nebulization 2 ml INHALATION BID ml 08/05/16 [History Confirmed 02/15/18 Last Taken 02/15/18 08:00] tiotropium bromide 18 mcg capsule with inhalation device 1 cap INHALATION QDAY 08/05/16 [History Confirmed 02/15/18 Last Taken 02/15/18 08:00] budesonide 0.5 mg/2 mL suspension for nebulization 0.5 mg INHALATION BID ml 03/31 [History Confirmed 02/15/18 Last Taken 02/15/18 08:00] Albuterol Sulfate [Ventolin] 2 puff INH Q4H PRN 02/15/18 [History Confirmed 06/30 Last Taken Unknown] Medical - DS: Hosp Hospital course: Mr. 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 Barry has noted worsening shortness of breath along with increasing sputum production that has limited his functionality over the last 5 days. He tried to work with the symptoms however he failed to notice any improvement with bronchodilators. He has become increasingly labored even at rest. He also noted associated intermittent chills along with low-grade fever without sweats. He denied being exposed to sick contact. He subsequently presents to the ER initial workup was significant for profound hypoxia at 70% sats. Chest x-ray reveals multifocal pneumonia. He was started on antibiotic coverage after blood cultures were drawn. Hospitalist service was subsequently consulted for admission At the time of evaluation patient is very distressed trying to catch of breath and labored. Unable to talk in full sentences. No family present. He was able to provide answer to most of the questions in yes and no. He appears very anxious. He however feels slightly better with initial treatment in the ER. 02/16-patient status quo however was managed on BiPAP overnight, currently on trial of BiPAP. Persistent labored breathing. On broad antibiotic coverage. On dysphagic diet/ST eval. On IV steroids. White count improved from 15.7- 9.5. Strep pneumo/mycoplasma serologies negative. Improved tachycardia and tachypnea. ABG 7.4/50 7/50 compensated on BiPAP. -02/17-patient clinically improved since previous day however persistent shortness of breath. Was on trilogy ventilator at night. On antibiotic coverage. White count 15.1. Still unable to talk in full sentences. Son at bedside. Continue telemonitoring. Improved tachycardia. No overnight fever chills or major concerns per nursing staff. On antibiotic coverage. 02/18-patient doing a lot better. No overnight events. No fever chills. On 1/ 2 L oxygen during the day and trilogy ventilator at night. On antibiotic coverage. Intervals imaging on chest x-ray. No fever chills or concerns per staff. Tolerating dysphagic diet as per ST recommendations. Further ST evaluation today. Ongoing physical therapy. Anticipate discharge in 24-48 hours if continues to improve on oral antibiotics. White count down to 13.5. 02/19-patient feeling extremely short of breath this morning. Was only able to get out of bed to chair. Was on nocturnal vent. Very gradual clinical improvement in light of end-stage COPD. No family at bedside. White count down to 12.3. Continue twice daily Solu-Medrol/bronchodilators. Anticipate discharge in 48 hours once clinically back to baseline 02/20 Pt seen examined no acute overnight issues, tolerating po diet well, he is feeling better, but still short of breath, he feels however he is improving back to baseline. His oxygen saturations drop with minimal activity. was on 3 L oxygen, being weaned down, if able to wean down to baseline, will d/ c him in AM 02/21 Patient seen examined, no acute overnight issues, back to oxygen at 1 L which is his baseline, Patient wishes to go home today, feels back to near basline. Sitting by the bed tolerating po diet well will d/c home with PT/OT he will continue with his bipap at night, continue antibiotic (levofloxacin 750mg daily x 2 more days), and be on a steroid taper. Discharge diagnosis: Multifocal Pneumonia, COPD exacerbation - Time Spent with Patient Total time spent providing and/or coordinating discharge services: Greater than 30 minutes Medical - DS: Exam - Constitutional Vitals: Vital Signs Temp Pulse Pulse Resp BP Pulse Ox 02/21/18 08:00 98.0 F 97 H 25 H 139/72 96 02/21/18 07:25 87 16 02/21/18 03:53 97.3 F 83 22 138/71 92 02/20/18 23:31 98.5 F 110 H 24 H 125/67 90 02/20/18 22:50 106 H 18 02/20/18 20:00 98.7 F 110 H 20 132/59 95 02/20/18 19:10 102 H 18 02/20/18 18:47 92 02/20/18 16:00 97.9 F 79 19 126/69 95 02/20/18 14:48 102 H 20 02/20/18 11:44 98.0 F 81 22 145/69 94 02/20/18 11:18 91 H 16 Intake and Output 02/20/18 02/21/18 02/21/18 21:59 05:59 13:59 Intake Total 870 / 870 660 / 660 Output Total 1650 / 1650 1275 / 1275 Balance -780 / -780 -615 / -615 Intake: IV 150 / 150 300 / 300 Zosyn 3.375 gm In Dextrose 5% 50 / 50 50 / 50 in Water 50 ml @ 100 mls/hr IV Q6H [facility]IMIRO Rx#:[id number] Vancomycin 1,000 mg In Sodium 250 / 250 Chloride 0.9% 250 ml @ 250 mls/ hr IV Q12H [facility]IMIRO Rx#:[id number] Oral 720 / 720 360 / 360 Output: Void Amount 1650 / 1650 1275 / 1275 Other: Meal Dinner Percent of Meal Consumed 100% Feeding Ability Independent Urine Appearance Clear Clear Urine Color Pale Straw Urine Odor Normal Stool Size Moderate Moderate Stool Color Brown Brown Stool Consistency Formed Formed # Voids 1 1 # Bowel Movements 1 1 Weight 142 lb Additional comments: Constitutional; Afebrile, cooperative, alert, not in distress. Respiratory system: Air Entry equal on both sides, No crackles or wheezing, no rhonchi. CVS- Rate rhythm regular, S1,S2 heard, no gallop, no rub. Abdomen- Soft nontender abdomen, no organomegaly, no tenderness, no guarding or rigidity, CDC ASSOCIATE- AOOx3, moving all extremities, no gross focal deficit noted. Medical - DS: Data Labs on day of discharge: Labs from last 24 hours 02/21/18 02/21/18 03:31 03:31 WBC 13.2 H RBC 4.49 L Hgb 13.6 Hct 40.5 L MCV 90.2 MCH 30.3 MCHC 33.6 RDW 12.6 Plt Count 259 MPV 7.6 Gran % 95.1 H Lymph % (Auto) 3.8 L [place] % (Auto) 1.1 Eos % (Auto) 0 Baso % (Auto) 0 Gran # 12.6 H Lymph # (Auto) 0.5 L [place] # (Auto) 0.1 Eos # (Auto) 0 Baso # (Auto) 0 Sodium 139 Potassium 4.8 Chloride 98 Carbon Dioxide 33 H Anion Gap 8.0 BUN 22 Creatinine 0.8 GFR Calculation 88 Glucose 289 H Uric Acid 1.9 L Calcium 8.6 Phosphorus 2.7 Magnesium 2.2 Total Bilirubin 0.2 Direct Bilirubin < 0.2 GGT 19 AST 20 ALT 39 Alkaline Phosphatase 56 Lactate Dehydrogenase 186 Total Protein 5.7 L Albumin 3.0 L Globulin 2.7 Albumin/Globulin Ratio 1.1 Triglycerides 58 Medical - DS: A/P - Patient/Caregiver Discharge Instructions Activity: increase activity as tolerated Diet: Consistent Carbohydrate Additional Instructions: Please take levofloxacin 750mg daily for 2 more days Take prednisone with food, take the medication as prescribed, Go to the ER if worsening condition, chest pain, shortness of breath or any other acute concern. Follow up with PCP in 1 week Follow up with Pulmonary physician in 2 weeks. - Follow up Plan Follow up with: aJde Lema MD [Primary Care Provider] - Trevor Akins MD [Physician] - Disposition: Home Health Service Prognosis: Fair Rehab Potential: Fair I certify that the patient requires SNF services: No Overall status at discharge: patient is progressing back to baseline Medical - DS: Qual - VTE Deep Vein Thrombosis/Pulmonary Embolism Present on Admission: No
== END 2018-02-21 13:47 | disposition home health service (06) | DRG 871 ==
LOC: ED 14:31 → ICU 20:12
PROVIDERS: ADMIT Internal Medicine; ATTEND Internal Medicine
CPT/HCPCS: 84145; 87149; 97161; 99231; J0456; J1644; J1817; J1956; J2543; J2930; J3370; J7030; J7050; J7060; J7620; J7620-GY; J7626; J7626-GY